=== PATIENT | female | born 1980 | race Caucasian/White ===

== ENCOUNTER → 2023-10-14 08:15 | Outpatient (REF) | payer BC, SELFPAY | LOC: HWWDC 08:15 | PROVIDERS: ATTENDING PHYSICIAN Family Medicine | DX: Z12.31 Encounter for screening mammogram for malignant neoplasm of breast (principal) | CPT/HCPCS: 77063; 77067 ==

== ENCOUNTER → 2024-10-22 13:13 | Outpatient (REF) | payer OTHER, SELFPAY | LOC: MRI 3T 13:13 | PROVIDERS: ATTENDING PHYSICIAN Nurse Practitioner; FAMILY PHYSICIAN Internal Medicine | DX: I67.1 Cerebral aneurysm, nonruptured (principal) | CPT/HCPCS: 70544 ==

== ENCOUNTER → 2024-11-07 08:39 | Outpatient (REF) | payer OTHER, SELFPAY | LOC: HWWDC 08:39 | PROVIDERS: ATTENDING PHYSICIAN Family Medicine | DX: Z12.31 Encounter for screening mammogram for malignant neoplasm of breast (principal) | CPT/HCPCS: 77063; 77067 ==

== ENCOUNTER → 2025-02-16 08:00 | Outpatient (REF) | payer OTHER, SELFPAY | LOC: HWRAD 08:00 | PROVIDERS: ATTENDING PHYSICIAN Family Medicine | DX: J34.9 Unspecified disorder of nose and nasal sinuses (principal); H92.02 Otalgia, left ear | CPT/HCPCS: 70486 ==

== ENCOUNTER → 2025-03-09 18:26 | Outpatient (REF) | payer OTHER, SELFPAY | LOC: MRI 3T 18:26 | PROVIDERS: ATTENDING PHYSICIAN Nurse Practitioner Family; FAMILY PHYSICIAN Family Medicine | DX: R42 Dizziness and giddiness (principal); H93.13 Tinnitus, bilateral | CPT/HCPCS: 70553; A9575 ==

== ENCOUNTER 2025-05-21 16:28 | Emergency (ER) | payer OTHER, SELFPAY ==
[2025-05-21 16:33] VITALS: BP 114/84
[2025-05-21 19:12] VITALS: BMI 29.6
[2025-05-21] MEDS: ADACEL 0.5 ML IM (19:54)
--- NOTE | 2025-05-21 20:00 | ED.SKININJ ---
HPI-Injury
General
Chief Complaint: Bite
Source: patient
Exam Limitations: none
Time Seen by Provider: 05/21/25 19:26
Nursing documentation reviewed up to this point in time: agreed with
History of Present Illness-Injury
Initial Injury comments:
Patient is a 44-year-old female who was trying to help with squirrel to broken legs when she was bitten on her left thumb and index finger. This happened several hours ago. She is unsure of her last tetanus. She does complain of swelling. She is
right-hand dominant.
Past History
Past History
ED Past Medical History: None
ED Past Surgical History: Gynecological
Social History
Tobacco: Former smoker
Alcohol: Occasional
Drug: None
Personal: Single
Living: alone
Employment: Employed
Phy Exam
General Physical Exam
General Presentation: no apparent distress
General age: appears stated age
General Skin: warm and dry
General Habitus: normal
General Mental: alert
Neurological Exam
Neurological Exam: alert and oriented x3
Musculoskeletal Exam
Musculoskeletal Exam: full ROM and other (lue with strong pulses + puncture to left thumb prox phalynx and + puncture to left index finger middle phalynx mild swelling able to flex/extend minimal erythema )
Skin Exam
Skin Exam: normal color and warm/dry
Psychiatric Exam
Psychiatric Exam: normal mood/affect
Course
Orders/Labs/Results
Orders:
Orders
05/21/25 19:44
Tetanus/Diphth/Acelpertussis [Adacel] 0.5 ml IM .ONCE ONE
Hand, Left 3 View [CR Hand - Left Min 3 Views] Urgent
Comment:
Reason For Exam: bite to thumb and index finger
05/21/25 21:00
Clindamycin HCl [Cleocin] 300 mg .ROUTE .STK-MED ONE
05/22/25 00:00
Clindamycin HCl [Cleocin] 300 mg PO Q6
Vital Signs
Initial and Last Documented VS:
Initial Vital Signs
Temp Pulse Resp BP Pulse Ox
98.1 F 62 20 114/84 95
05/21/25 16:33 05/21/25 16:33 05/21/25 16:33 05/21/25 16:33 05/21/25 16:33
Last Documented Vital Signs
Temp Pulse Resp BP Pulse Ox
98.1 F 70 16 120/65 98
05/21/25 16:33 05/21/25 20:49 05/21/25 20:49 05/21/25 20:49 05/21/25 20:49
MDM/Problems Addressed
Differential Diagnosis Includes:
Not limited to puncture, animal bite
MDM/Problems Addressed:
Patient with 2 puncture wounds , puncture wound to her left thumb and index finger no obvious findings on x-ray. Patient reports she is allergic to penicillin reviewed with ED physician will DC on clindamycin. Reviewed signs of infection with
patient and wound care and importance of follow-up with family doctor in the next 2 days for reevaluation
*Pulse Oximetry
SaO2: 95
Oxygen Mode of Delivery: Room air
Patient hypoxic: no
*Critical Care Note
Total Time (30-74mins, 75-104mins- exclusive of procedures): Not Applicable
ED Attending Note
-
Portions of this chart may have been created with voice recognition software.� Occasional wrong word or��sound alike� substitutions may have occurred due to the inherent limitations of voice recognition software.
Discharge Plan
Departure
Patient Disposition: Home (Routine Discharge)
Date of Disposition: 05/21/25
Time of Disposition: 21:05
Patient with high blood pressure during this ER visit?: No
Condition: Fair
Covid-19: Not Applicable
Discharge Problem:
Animal bite
Instructions: Animal Bites (DC), Wound Care (DC)
Prescriptions:
New
clindamycin HCl [Cleocin HCl] 300 mg capsule
300 mg PO Q6H Qty: 20 0RF
fluconazole 150 mg tablet
150 mg PO DAILY Qty: 1 0RF
No Action
cyclobenzaprine 10 MG tablet
10 mg PO HS
Probiotic
1 PO DAILY
Vitamin C
1 tab PO DAILY
Vitamin D
1 PO DAILY
acetaminophen [Tylenol Extra Strength] 500 MG tablet
2 tab PO PRN (Reason: pain)
Referrals:
Rachelle Torres DO [Family Provider, Family Practice]
Activity Restrictions/Additional Instructions:
Wash twice a day with soap and water pat dry. Return if any signs of infection if increased pain swelling redness drainage fever chills. Antibiotic as directed for the next 5 days to prevent infection. In addition as requested you were given 1
dose of Diflucan as needed. Please see your family doctor in 2 days for wound check return if any worsening of symptoms.
Interventions
Interventions:
*Risk Screen - Suicide Last Done: 05/21/25 16:33
*General Assessment Last Done: 05/21/25 16:33
*Neglect/Abuse Screening Last Done: 05/21/25 19:12
*ED- Fall Risk Assessment Last Done: 05/21/25 19:12
*ED COVID-19 Vaccine History Last Done: 05/21/25 19:12
*ED Influenza Vaccine History Last Done: 05/21/25 19:12
ED-Skin Assessment Last Done: 05/21/25 19:12
Discharge Date and Time
Print Language: PARAGUAYAN
[2025-05-21 20:49] VITALS: BP 120/65
[2025-05-21] MEDS: CLEOCIN 300 MG PO (21:02)
== END 2025-05-21 21:18 | disposition home or self-care (01) ==
LOC: EMR 16:28
PROVIDERS: EMERGENCY PHYSICIAN Student in an Organized Health Care Education/Training Program; FAMILY PHYSICIAN Family Medicine
DX: S61.052A Open bite of left thumb without damage to nail, initial encounter (principal); S61.251A Open bite of left index finger without damage to nail, initial encounter; W53.21XA Bitten by squirrel, initial encounter; Z23 Encounter for immunization; Z88.0 Allergy status to penicillin; Z87.891 Personal history of nicotine dependence
CPT/HCPCS: 99283; 90471; 73130; 90715